=== PATIENT | male | born 1970 | race Caucasian/White ===

== ENCOUNTER 2016-08-30 14:07 | Emergency (ER) | payer OTHER ==
[~2016-08-30] VITALS: Ht 165.1 cm; Wt 84.4 kg
[2016-08-30 14:08] VITALS: BP 154/97
[2016-08-30] MEDS ORDERED: DIPH,PERTUSS(ACELL),TET VAC/PF 0.5 ML IM-VACC ONE ×2 (14:50→15:00)
[2016-08-30] MEDS ORDERED: IBUPROFEN 200 MG TABLET PO ONE (16:00)
== END 2016-08-30 16:22 | disposition home or self-care (01) ==
LOC: ED 15:26
DX: S61.441A Puncture wound with foreign body of right hand, initial encounter (principal); Z23 Encounter for immunization; W26.0XXA Contact with knife, initial encounter; Y93.89 Activity, other specified; Y99.0 Civilian activity done for income or pay; Y92.69 Other specified industrial and construction area as the place of occurrence of the external cause
CPT/HCPCS: 90471; 90715